=== PATIENT | female | born 1985 | race Caucasian/White ===

== ENCOUNTER 2022-11-06 01:02 | Day surgery (SDC) | payer OTHER, SELFPAY ==
[2022-11-04 11:07] VITALS: BMI 25.1
--- NOTE | 2022-11-04 11:11 | PC.NURSE ---
Report to the Outpatient Waiting Room, entrance under the green pavilion located off [facility], at time 1030 on date 11/06/22. Planned Procedure Time: 1230. Time changes happen often and if your time is changed the preop area will call you the afternoon before. - You and your visitor will be asked to self-screen and do not enter if you have any COVID symptoms. - A mask is optional within the hospital at this time. Patients may have clear liquids (water, carbonated beverages, clear teas, apple juice) until 3 hours prior to surgery with a maximum of 20 ounces. - No food from midnight until time of surgery Take the following medications with a SIP of water the morning of surgery: NONE DO NOT STOP ANY OF YOUR OTHER PRESCRIPTION MEDICATIONS PRIOR TO SURGERY EXCEPT THE FOLLOWING Medications to discontinue per physician: VITAMINS/SUPPLEMENTS Date to take last dose: NO MORE UNTIL AFTER SURGERY FOLLOW INSTRUCTIONS FROM DR. ELI MONTEIRO REGARDING ASPIRIN Please no make-up, nail belarusian, hairspray, perfume, deodorant, or body powder the day of surgery. No jewelry (including any body piercings) or valuables the day of surgery, leave them at home. Please take a shower or bath the night before, or the morning of, surgery with an antibacterial soap. Wear comfortable, loose fitting clothing. - Jewelry must be removed prior to entering the operating room. Rings and piercings that are not removed may be cut off. - The hospital will not accept responsibility for valuables. - Please leave all valuables, including medications, at home the day of surgery. If you are going home after surgery, a licensed special client bus driver must drive you home. - NO public transportation without another adult if you receive anesthesia. - We recommend that an adult stay with you for 24 hours following discharge. - We also recommend that you do not drive, make important decision, drink alcoholic beverages, or take any drugs that were not prescribed by your health care provider for at least 24 hours after your discharge time. Follow any additional instructions given to you from your surgeon. If you or anyone in your household have experienced Covid symptoms in the past week, please notify your surgeon or the nurse liaison at the phone number below for possible testing. Telephone instructions given to PT - MAIKEL CARMONA and asked if any additional questions and then verbalized understanding. Patient advised to call surgeon office or pre surgery nurse liaison [phone] if any additional questions.
--- NOTE | 2022-11-04 16:28 | PM.IMHP ---
H&P: HPI History of Present Illness Date/Time: 11/04/22 16:28 Chief Complaint: 1st trimester missed A/B Narrative: This is a very kind 37-year-old 2 para 0 in her 1st trimester of following IVF who was noted to have a 9 and half week demise intrauterine . Unfortunately she has had a previous 20 week loss many years ago and this was IVF and things were appeared to be going fine prior to this. She was offered watchful waiting versus considering dilatation curettage and opted for the latter risks and benefits reviewed including but not exclusive of , aspiration pneumonia, bleeding, transfusion, perforation injury to bowel, bladder, ureters, or other internal organs with need for open laparotomy. She all questions answered and asked to proceed PMFSH Social History Social History Smoking packs per day: 0.5 Smoking cigarettes per day: 10.0 Years smoked: 12 Smoking pack-years: 6.00 Smoking status: Former smoker Tobacco type: cigarettes Smoking end date: 05/10/17 Alcohol intake: never Substance use: never Substance use type: does not use Living arrangements: with family Spiritual care concerns: No Meds Home Medications and Allergies Home Medications Medication Instructions Recorded Confirmed Type aspirin 81 mg chewable tablet 81 mg PO DAILY 11/04/22 11/04/22 History estradiol 2 mg tablet 2 mg PO TID 11/04/22 11/04/22 History multivitamin 1 tablet PO DAILY 11/04/22 11/04/22 History progesterone 50 mg/mL 100 mg IM DAILY 11/04/22 11/04/22 History intramuscular oil Allergies Allergy/AdvReac Type Severity Reaction Status Date / Time No Known Allergies Allergy Verified 11/04/22 11:05 Exam Const: General: cooperative, healthy appearing, comfortable and average body habitus Orientation/consciousness: oriented to person, oriented to place and oriented to time HENMT: Head: normal to inspection Resp: Effort & Inspection: normal respiratory effort Cardio: Rate: regular rate Rhythm: regular rhythm Heart sounds: S1 normal heart sound present and S2 normal heart sound present GI: Inspection: normal to inspection : External Female Exam: normal external appearance Speculum Exam - Vagina: normal appearance of the vagina Speculum Exam - Cervix: normal appearance of the cervix Bimanual exam- vagina & uterus: enlarged Bimanual Exam- Adnexa, other: normal adnexae Assessment and Plan Assessment and plan (1) Missed with demise before 20 completed weeks of gestation: Code(s): O02.1 - Missed Status: Acute Plan Suction dilatation curettage
[2022-11-06] VITALS (9 sets, daily range): BP systolic 105–120; BP diastolic 54–79; PULSE 49–90; RESP 14–16; TEMP 36.3; O2SAT 99–100
--- NOTE | ~2022-11-06 | US_ITS ---
EXAMINATION: US OB <= 14 weeks fetus DATE: 11/06/2022 11:23 INDICATION: Suspicion for failure TECHNIQUE: Real-time pelvic transabdominal ultrasound was performed. COMPARISON: None. FINDINGS: There is an intrauterine gestational sac with a pole. No cardiac activity is id entified. The crown rump length measures 18 mm. The partially visualized adnexa is unremarkable . There is no free fluid in the pelvis. IMPRESSION: 1. Ultrasound findings diagnostic of failure. Reviewed, dictated and finalized at location B.
--- NOTE | 2022-11-06 07:27 | WPDHPUPDATE1 ---
History and Physical Update Update Date/Time: 11/06/22 07:27 History and Physical has been reviewed, including an updated exam of the patient. There are NO changes in the patient's condition. Risks, benefits, and alternatives have been discussed and questions answered. Patient agrees to proceed with procedure.
--- NOTE | 2022-11-06 11:22 | SUR.PREOP ---
1040 PT AND STATE CONCERNS ABOUT POSSIBLY REPEATING U.S., ASKING ABOUT GENETIC TESTING. WILL SEND MD IN TO SEE PT. 1115 U.S. DONE, DR. ELI MONTEIRO AWARE.
[2022-11-06] MEDS: LACTATED RINGERS 1,000 ML 30 ML IV CONT ×2 (11:58→13:54)
[2022-11-06] MEDS: ACETAMINOPHEN 500 MG TABLET 1000 MG PO (12:00)
--- NOTE | 2022-11-06 12:01 | WPDANESEPPF ---
Anes - Initial Pre Proc Eval Procedure: Operation Date: 11/06/22 12:30 Proposed Procedures p Suction Dilation and Curettage - Doyle Collins MD Date/Time: 11/06/22 12:01 Surgeon: Doyle Collins MD Pre Op Diagnosis: missed AB Patient Data Age: 37 Gender: F Height: 1.75 m Weight: 74.8 kg Last Vital Signs Temp 36.3 C L 11/06/22 10:39 Pulse 73 11/06/22 10:39 Resp 16 11/06/22 10:39 BP 114/79 11/06/22 10:39 Pulse Ox 100 11/06/22 10:39 O2 Del Method Room Air 11/06/22 10:39 Allergies Allergy/AdvReac Type Severity Reaction Status Date / Time No Known Allergies Allergy Verified 11/06/22 10:57 Home Medications Medication Instructions Recorded Confirmed Type aspirin 81 mg chewable tablet 81 mg PO DAILY 11/04/22 11/06/22 History estradiol 2 mg tablet 2 mg PO TID 11/04/22 11/06/22 History multivitamin 1 tablet PO DAILY 11/04/22 11/06/22 History progesterone 50 mg/mL 100 mg IM DAILY 11/04/22 11/06/22 History intramuscular oil hydrocodone 5 mg-acetaminophen 325 1 tablet PO Q4H PRN pain #20 tabs 11/06/22 Rx mg tablet Patient hx anesthesia problems: none Family hx anesthesia problems: none Results Review: All pre-operative results and documents have been reviewed as part of the pre-operative evaluation. [facility] Social History Social History Smoking packs per day: 0.5 Smoking cigarettes per day: 10.0 Years smoked: 12 Smoking pack-years: 6.00 Smoking status: Former smoker Tobacco type: cigarettes Smoking end date: 05/10/17 Alcohol intake: never Substance use: never Substance use type: does not use Living arrangements: with family Spiritual care concerns: No Anes - Eval Final PreProcedure Day of Procedure 11/06/22 12:01 Patient weight: normal Heart: regular rate and rhythm Lungs: clear to auscultation Airway: Mallampati scale class 1 Neurological: alert and oriented Last oral intake: >/= 8 hours ASA classification: II Emergent: no Anesthetic plan: proceed Anesthesia type and monitoring: general GIVS and standard monitoring Results Review: All pre-operative results and documents have been reviewed as part of the pre-operative evaluation. Informed Consent: The patient's anesthetic plan and its attendant risks and benefits were discussed with the patient/family/POA. Questions were solicited and answers provided to the satisfaction of the patient/family/POA.
[2022-11-06 12:07] LABS: Hematocrit 40.4 % (37.0-47.0); Hemoglobin 13.7 g/dL (12.0-15.0)
[2022-11-06] MEDS: LIDOCAINE HCL 1% LOCAL INJ 20 ML VIAL 10 ML INFILTRATE (12:57)
--- NOTE | 2022-11-06 13:00 | W.PM.PROC2 ---
Procedure Note - Detailed Date of Procedure 11/06/22 Pre-op Diagnosis missed AB Post-op Diagnosis Same Procedure Performed Suction dilatation curettage Surgeon Doyle Collins MD Anesthesia MAC and Local Indications this is a 37-year-old female with first-trimester missed A/B Findings uterus retroverted and sounded to 10cm. Tissue consistent with products conception Description of Procedure patient was prepped draped in normal sterile fashion placed in dorsal lithotomy position. Under excellent IV sedation weighted speculum placed post worse Mia. Anterior lip of cervix grasped single-tooth tenaculum. 2.5cc 1% xylocaine anesthesia placed at 2, 4, 8, 10:00 a.m. of the cervix. Uterus is noted be retroverted and sounded to 10cm. Serial dilatation fragmented dilators performed followed by passes the 10. Suction curette. Moderate to large amount of tissue was removed. When a good grating sound was heard the instruments withdrawn and the patient awakened. She went to recovery in satisfactory condition. All sponge, needle, instrument counts correct. There were no immediate complications Estimated Blood Loss 50 Drains No Packing No Pathology Yes ( the specimen was sent fresh) Complications No immediate complications Condition Stable Disposition PACU
[2022-11-06] MEDS: fentaNYL CITRATE INJ (*CRX) 100 MCG/2 ML VIAL 25 MCG IV PUSH ×3 (13:51→13:57)
[2022-11-06] MEDS: oxyCODONE HCL (*CRX) 5 MG TAB IR PO (14:03)
== END 2022-11-06 14:57 | disposition home or self-care (01) ==
PROVIDERS: Visit Provider Obstetrics & Gynecology
PROC: (CPT 59820; principal; 2022-11-06 12:30)
DX: O02.1 Missed abortion (principal); Z87.891 Personal history of nicotine dependence; Z3A.00 Weeks of gestation of pregnancy not specified
CPT/HCPCS: 59820; 36415; 76801; 85014; 85018; 85461; 86850; 86900; 86901; 88264; 88305; A9270; J1100; J2250; J2405; J2704; J3010; J7120

== ENCOUNTER 2022-11-10 15:01 | Observation (INO) | payer OTHER, SELFPAY ==
[2022-11-10] VITALS (17 sets, daily range): BP systolic 103–135; BP diastolic 50–90; PULSE 53–74; RESP 11–21; TEMP 36.4–37.2; O2SAT 100; BMI 25.1
--- NOTE | ~2022-11-10 | CT_ITS ---
CT of the Abdomen and Pelvis: Indication: Abdominal Technique: 2.5 mm axial scans were obtained through the abdomen and pelvis following intravenous adm inistration of 100 cc of Omnipaque 350. Dose reduction technique was used on this scan by utilizing a utomated exposure control and iterative reconstruction technique. The dose-length product (DLP) was 4 80.09 mGy-cm. Findings: Scans through the lung bases are unremarkable. The liver, spleen, pancreas, gallbladder, adrenals and kidneys are within normal limits. No evidence of aortic aneurysm. No lymphadenopathy. No bowel obstruction or bowel wall thickening. There is no evidence to suggest acute appendicitis. Images through the pelvis were performed. Urinary bladder unremarkable. There is a 2.2 cm mass near t he lower uterine segment, or possibly within the endometrial cavity. Small amount of pelvic ascites p resent. Impression: 2.2 cm mass at the lower uterine segment or possibly within the endometrial cavity. Statistically, th is is most likely a fibroid. Correlate for other endometrial polyp/mass. Small amount of pelvic ascites, nonspecific. Reviewed, dictated and finalized at location . Impression: 2.2 cm mass at the lower uterine segment or possibly within the endometrial cav ity. Statistically, this is most likely a fibroid. Correlate for other endometr ial polyp/mass. Small amount of pelvic ascites, nonspecific.
--- NOTE | ~2022-11-10 | US_ITS ---
EXAMINATION: US pelvic complete DATE: 11/11/2022 11:33 INDICATION: Retained products of conception. TECHNIQUE: Multiple transabdominal sonographic images of the pelvis were obtained. COMPARISON: CT abdomen and pelvis 11/10/2022, ultrasound 11/06/2022 FINDINGS: The uterus measures 8.9 x 5.6 x 6.4 cm. There is physiologic free fluid in the pelvis. The endometria l complex measures 23 mm in thickness. The ovaries are not visualized. IMPRESSION: 1. Thickened endometrial complex suspicious for retained products of conception. Reviewed, dictated and finalized at location A. IMPRESSION: 1. Thickened endometrial complex suspicious for retained products of conception .
[2022-11-10 15:41] LABS: Basophils Percent Auto 0.3 % (0.2-1.2); Eosinophils Absolute Auto 0.3 K/mm3 (0-0.3); Eosinophils Percent Auto 3.1 % (0-4.4); Hemoglobin 13.1 g/dL (12.0-15.0); Immature Granulocyte Absolute 0.04 K/mm3 (0.00-0.031); Immature Granulocyte Percent A 0.4 % (0-0.5); Lymphocytes Absolute Auto 2.17 K/mm3 (0.9-3.2); Lymphocytes Percent Auto 19.9 % (18.3-44.2); Mean Corpuscular HGB Conc 33.6 g/dl (32-36); Mean Corpuscular Hemoglobin 30.5 pg (26-34); Mean Corpuscular Volume 90.9 fl (80-100); Mean Platelet Volume 10.3 fl (7.4-10.4); Monocytes Percent Auto 9.2 % (2.6-8.5); Neutrophils Absolute Auto 7.3 K/mm3 (1.3-6.7); Neutrophils Percent Auto 67.1 % (45.5-73.1); Platelet Count Result 259 k/mm3 (150-375); Red Blood Count 4.29 M/mm3 (4.2-5.4); Red Cell Distribution Width 12.9 % (11.5-14.5); White Blood Count 10.9 K/mm3 (4.5-10.0)
[2022-11-10 15:51] LABS: Alanine Aminotransferase 24 U/L (6-35); Alkaline Phosphatase 67 U/L (38-126); Anion Gap 5 mmol/L (8-16); Aspartate Amino Transferase 18 U/L (14-36); Bilirubin,Total 0.5 mg/dL (0.2-1.3); Blood Urea Nitrogen 10 mg/dL (7-17); Carbon Dioxide 29 mmol/L (22-30); Chloride 105 mmol/L (98-107); Estimated CRCL calculation 115 ml/min; Estimated Glomerular Filt Rate > 60; Glucose 97 mg/dL (65-110); Potassium 3.4 mmol/L (3.4-5.0); Sodium 139 mmol/L (137-145)
[2022-11-10 16:28] LABS: Lipase 57 U/L (23-300)
[2022-11-10] MEDS: SODIUM CHLORIDE 0.9% IV 1,000 ML 999 ML IV CONT (16:31)
[2022-11-10] MEDS: MORPHINE SULFATE (*CRX) 4 MG/ML INJ IV PUSH (16:32)
[2022-11-10] MEDS: ONDANSETRON INJ 4 MG/2 ML VIAL IV PUSH ×2 (16:32→20:40)
[2022-11-10 16:45] LABS: Appearance Urine Clear (Clear); Bilirubin Urine Negative (Negative); Blood Urine 2+ (Negative); Color Urine Yellow (Yellow); Glucose Urine UA Negative (Negative); Ketones Urine Negative (Negative); Leukocyte Esterase Ur Negative LEU/UL (Negative); Nitrate Urine Negative (Negative); Protein Urine Negative (Negative); Specific Grav Ur 1.025 (1.001-1.035); Urobilinogen Urine 0.2 mg/dL (<2.0)
[2022-11-10 17:02] LABS: Add Urine Microscopic? YES
[2022-11-10 17:03] LABS: Squamous Epithelial Cell Urine Few /hpf (Few); WBC Urine 0-3 /hpf (0-3)
[2022-11-10 17:04] LABS: Bacteria Urine None Seen /hpf; Hyaline Casts Urine 0-2 /lpf
--- NOTE | 2022-11-10 17:04 | ED.GENADULT ---
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 Patient is currently going through IVF therapy. She reports she underwent D&C by Dr. Cedric Collins on Wednesday for a miscarriage/ demise at 9.5 weeks. She reports she has been having diffuse abdominal pain since then, however the pain has become worse over the last couple of days. She reports pain is occasionally epigastric, in her right upper abdomen, or diffusely throughout her lower abdomen/pelvic region. She was prescribed [place], but has been using this sparingly as she has been constipated. She reports her last true bowel movement was prior to surgery. She did pass a small amount of stool this morning, but did not feel relief. Denies rectal bleeding or melena. She is still having some light vaginal bleeding, but states she is not saturating through pads. Patient denies any nausea, vomiting, fevers, dysuria, hematuria. <DELORES Figueroa Last Filed: 11/10/22 18:39> Related Data Home medications: Home Medications Medication Instructions Recorded Confirmed aspirin 81 mg chewable tablet 81 mg PO DAILY 11/04/22 11/06/22 estradiol 2 mg tablet 2 mg PO TID 11/04/22 11/06/22 multivitamin 1 tablet PO DAILY 11/04/22 11/06/22 progesterone 50 mg/mL 100 mg IM DAILY 11/04/22 11/06/22 intramuscular oil <Vanessa Kendrick PA-C - Last Filed: 11/10/22 18:39> Allergies/adverse reactions: Allergies Allergy/AdvReac Type Severity Reaction Status Date / Time No Known Allergies Allergy Verified 11/06/22 10:57 <Vanessa Kendrick PA-C - Last Filed: 11/10/22 18:39> Review of Systems Review of Systems: CONSTITUTIONAL: Denies fever, chills, or sweats. CARDIOVASCULAR: Denies chest pain. RESPIRATORY: Denies dyspnea. GASTROINTESTINAL: See HPI. GENITOURINARY: See HPI. SKIN: Denies rash or itching. <Vanessa Kendrick PA-C - Last Filed: 11/10/22 18:39> All systems reviewed & are unremarkable except as noted in HPI and below <Vanessa Kendrick PA-C - Last Filed: 11/10/22 18:39> PMFSH Surgical History Surgical History: Surgical History (Updated 11/10/22 @ 18:13 by Vanessa Kendrick PA-C) H/O dilation and curettage <Vanessa Kendrick PA-C - Last Filed: 11/10/22 18:39> Social History Social History: Social History Smoking packs per day: 0.5 Smoking cigarettes per day: 10.0 Years smoked: 12 Smoking pack-years: 6.00 Smoking status: Former smoker Tobacco type: cigarettes Smoking end date: 05/10/17 Alcohol intake: never Substance use: never Substance use type: does not use Living arrangements: with family Spiritual care concerns: No <Vanessa Kendrick PA-C - Last Filed: 11/10/22 18:39> Exam Narrative: GENERAL: Uncomfortable appearing, well-nourished, non-toxic, in mild acute distress d/t pain. HEAD: Normocephalic, atraumatic. NECK: Supple. No adenopathy, no masses. RESPIRATORY: Airway patent, respirations nonlabored. Clear to auscultation bilaterally, no rales, rhonchi, wheezing. CARDIOVASCULAR: Regular rate and rhythm without murmurs, rubs, or gallops. Radial pulses 2+ and equal bilaterally. ABDOMINAL: Soft, diffuse tenderness throughout upper abdomen, left lower abdomen, nondisten
--- NOTE | 2022-11-10 17:07 | PC.NURSE ---
called lab @2152 to add on Beta HCG Quant. Spoke to Carissa
[2022-11-10] MEDS: HYDROmorphone HCL INJ (*CRX) 1 MG/ML SYR IV PUSH (17:52)
[2022-11-10] MEDS: HYDROmorphone HCL INJ (*CRX) 1 MG/ML SYR 0.5 MG IV PUSH (20:39)
--- NOTE | 2022-11-10 21:56 | ADMGEN ---
This patient, Ria Ritter, was admitted to 2 Medical Room 251-. Patient/family oriented to hospital policies and general routines including ID bracelet, bed and alarms, visiting hours, pain management, procedures, bathroom and other care routines, personal items, smoking policy, room service/diet, and visiting hours. Information on how to activate the Rapid Response Team has been discussed. Patient/Family are encouraged to report perceived risks to care and to ask questions if they do not understand what they are told or what they should do.
[2022-11-11] MEDS: HYDROmorphone HCL INJ (*CRX) 1 MG/ML SYR 0.5 MG IV PUSH ×3 (00:32→08:38)
[2022-11-11] MEDS: LACTATED RINGERS 1,000 ML 150 ML IV CONT ×2 (00:35→08:38)
[2022-11-11 06:44] VITALS: BP 102/67; PULSE 69; RESP 21; TEMP 36.6; O2SAT 100
--- NOTE | 2022-11-11 07:04 | PM.IMHP ---
H&P: HPI History of Present Illness Date/Time: 11/11/22 07:04 Chief Complaint: Lower abdominal pain Narrative: Since 37-year-old who underwent suction D and C for first-trimester missed A/B Wednesday was admitted last night complaining lower abdominal pain. CT was essentially negative with a small 2cm suspected fibroid in the uterus. Her white count was 10 and her hemoglobin and crit were stable. She had been doing well prior she does states she had some constipation. [facility] Surgical History Surgical History H/O dilation and curettage Social History Social History Smoking packs per day: 0.5 Smoking cigarettes per day: 10.0 Years smoked: 12 Smoking pack-years: 6.00 Smoking status: Never smoker Tobacco type: cigarettes Smoking end date: 05/10/17 Alcohol intake: current Substance use: never Substance use type: does not use Lack of Transportation: No Lack of Food: Never True Current Housing: I Have Housing Concerned About Future Housing: No Difficulty Paying Gas/Electric Bills: No Difficulty Paying for Meds: No Currently Unemployed: No Education: Bachelor's Degree Difficulty w/ Childcare or Family Care: No Living arrangements: with family Spiritual care concerns: No Meds Home Medications and Allergies Home Medications Medication Instructions Recorded Confirmed Type No Home Medications 11/10/22 11/10/22 History Allergies Allergy/AdvReac Type Severity Reaction Status Date / Time No Known Allergies Allergy Verified 11/06/22 10:57 Vital Signs Vital Signs - 24 hr 11/10/22 15:05 11/10/22 15:24 11/10/22 15:26 Temperature 98.9 F Pulse Rate 60 55 L 56 L Respiratory Rate 18 15 Blood Pressure 135/90 111/70 118/64 Pulse Oximetry 100 100 Oxygen Delivery Room Air 11/10/22 15:27 11/10/22 15:28 11/10/22 17:53 Temperature Pulse Rate 56 L 74 68 Respiratory Rate 18 Blood Pressure 116/61 108/76 119/71 Pulse Oximetry 100 Oxygen Delivery 11/10/22 15:46 11/10/22 16:01 11/10/22 16:16 Temperature Pulse Rate 60 69 57 L Respiratory Rate 11 L 11 L 16 Blood Pressure 103/62 108/66 126/75 Pulse Oximetry 100 100 100 Oxygen Delivery 11/10/22 16:35 11/10/22 16:46 11/10/22 17:01 Temperature Pulse Rate 67 56 L 59 L Respiratory Rate 13 12 14 Blood Pressure 119/73 108/74 107/67 Pulse Oximetry 100 100 100 Oxygen Delivery 11/10/22 17:16 11/10/22 17:31 11/10/22 18:01 Temperature Pulse Rate 59 L 53 L 72 Respiratory Rate 14 11 L 18 Blood Pressure 118/67 119/71 114/76 Pulse Oximetry 100 100 100 Oxygen Delivery 11/10/22 19:35 11/10/22 22:54 11/11/22 06:44 Temperature 97.6 F 97.8 F Pulse Rate 71 71 69 Respiratory Rate 13 21 H 21 H Blood Pressure 107/66 113/50 L 102/67 Pulse Oximetry 100 100 100 Oxygen Delivery Exam Const: General: cooperative, healthy appearing and average body habitus Orientation/consciousness: oriented to person, oriented to place and oriented to time HENMT: Head: normal to inspection Resp: Effort & Inspection: normal respiratory effort Cardio: Rate: regular rate Rhythm: regular rhythm Heart sounds: S1 normal heart sound present and S2 normal heart sound present GI: Inspection: normal to inspection and other (Mildly tender) Auscultation: normal bowel sounds H&P: Results Labs Labs: Short CBC 11/10/22 Range/Units 15:24 WBC 10.9 H (4.5-10.0) K/mm3 Hgb 13.1 (12.0-15.0) g/dL Hct 39.0 (37.0-47.0) % Plt Count 259 (150-375) k/mm3 BMP 11/10/22 15:24 Sodium 139 Potassium 3.4 Chloride 105 Carbon Dioxide 29 BUN 10 Creatinine 0.60 L Glucose 97 Calcium 9.0 Liver Function 11/10/22 Range/Units 15:24 Total Bilirubin 0.5 (0.2-1.3) mg/dL AST 18 (14-36) U/L ALT 24 (6-35) U/L Alkaline Phosphatase 67 (38-126) U/L Albumi
[2022-11-11 07:24] LABS: Hematocrit 34.1 % (37.0-47.0); Hemoglobin 11.2 g/dL (12.0-15.0); Mean Corpuscular HGB Conc 32.8 g/dl (32-36); Mean Corpuscular Hemoglobin 30.4 pg (26-34); Mean Corpuscular Volume 92.4 fl (80-100); Platelet Count Result 199 k/mm3 (150-375); Red Blood Count 3.69 M/mm3 (4.2-5.4); White Blood Count 6.3 K/mm3 (4.5-10.0)
[2022-11-11 08:00] VITALS: PULSE 69; RESP 21; O2SAT 100
[2022-11-11] MEDS: ACETAMINOPHEN 500 MG TABLET 1000 MG PO ×2 (10:52→14:15)
[2022-11-11 13:52] VITALS: BP 106/60; PULSE 65; RESP 18; TEMP 36.9; O2SAT 100
--- NOTE | 2022-11-12 13:33 | PM.DS ---
DS: Admitting Diagnosis Discharge Date 11/11/22 Admitting Diagnosis pelvic pain DS: Discharge Diagnosis Discharge Diagnosis (1) Pelvic pain: Code(s): R10.2 - Pelvic and perineal pain Status: Acute DS: Summary Hospital Course Reason for hospitalization: patient was admitted several days postop from suction D& C. She has had relatively Alexey abdominal pain. She was having no bleeding other abnormalities. She underwent CT and ultrasound which showed some thickened endometrium the. She was admitted and passed 1 small clot. Her white count remains stable she did receive 1 dose of Rocephin. Her hemoglobin and a crit were stable as well. A she was not bleeding and her pain was improving she was sent home without reservation. She has follow-up in 1 week Hospital Course: see above Time Spent with Patient Time attestation: Total time spent providing and/or coordinating discharge services: Exam Const: General: cooperative, healthy appearing and comfortable Nutritional Appearance: average body habitus Orientation/consciousness: oriented to person, oriented to place and oriented to time Limitations: no limitations Resp: Effort & Inspection: normal respiratory effort GI: Inspection: normal to inspection Discharge Plan Discharge Attending physician on discharge: Doyle Schneider Consulting providers: Vanessa Kendrick; Jameson Henry; Jovani Chacon V. Discharging Clinician: Doyle Schneider Patient Disposition: Home, Self-Care Activity: may shower and as tolerated Diet: regular Discharge Instructions: Monitor for bleeding. If you notice heavy bleeding or pass several large clots, please contact the office. You may take your pain medication as prescribed. Patient Instructions: Antibiotic Form Stand Alone Forms: General Discharge Information Follow-up/Referrals: Doyle Schneider MD [Physician] - Call for Appointment Discharge Medications: No Action No Home Medications Date of admission: 11/10/22 20:43 Primary Care Provider: PHYSICIAN NOT ON STAFF,NONSTAFF Admitting Provider: Doyle Schneider Attending physician on admission: Doyle Schneider Condition: Guarded Prognosis
== END 2022-11-11 15:40 | disposition home or self-care (01) ==
LOC: ANHED 21:13 → ANH2MED 11-11 08:01
PROVIDERS: Physician Assistant; Admitting Provider Obstetrics & Gynecology; Emergency Provider Emergency Medicine; Visit Provider Obstetrics & Gynecology
DX: R10.2 Pelvic and perineal pain (principal); K59.00 Constipation, unspecified; R93.89 Abnormal findings on diagnostic imaging of other specified body structures; R31.9 Hematuria, unspecified; N85.9 Noninflammatory disorder of uterus, unspecified; R18.8 Other ascites; Z87.891 Personal history of nicotine dependence; Z98.890 Other specified postprocedural states; F10.90 Alcohol use, unspecified, uncomplicated
CPT/HCPCS: 36415; 74177; 76856; 80053; 81001; 81025; 83690; 84702; 85025; 85027; 96361; 96374; 96375; 96376; 99285; A9270; G0378; J0696; J1170; J2270; J2405; J7030; J7120; Q9967

== ENCOUNTER 2023-11-18 11:04 | Inpatient (IN) | payer OTHER, SELFPAY ==
[2023-11-18] VITALS (87 sets, daily range): BP systolic 85–130; BP diastolic 40–86; PULSE 47–92; TEMP 36.8–37.2; O2SAT 98–100; BMI 30.8
--- NOTE | 2023-11-18 11:44 | PM.IMHP ---
H&P: HPI History of Present Illness Date/Time: 11/18/23 11:44 Chief Complaint: Of labor at term Narrative: [id number] 38-year-old 4 para 0 39 and half weeks gestation she has had this was an IVF she has had mildly elevated blood pressures she is for induction. She is negative for group B strep PMFSH Surgical History Surgical History H/O dilation and curettage Family History Family History Mother Cerebrovascular accident Acute myocardial infarction Grandparent Diabetes mellitus Grandparent Diabetes mellitus Grandparent Cerebrovascular accident Hypertension Social History Social History Smoking packs per day: 0.5 Smoking cigarettes per day: 10.0 Years smoked: 12 Smoking pack-years: 6.00 Smoking status: Never smoker Tobacco type: cigarettes Smoking end date: 05/10/17 Alcohol intake: current Substance use: never Substance use type: does not use Lack of Transportation: No Lack of Food: Never True Current Housing: I Have Housing Concerned About Future Housing: No Difficulty Paying Gas/Electric Bills: No Difficulty Paying for Meds: No Currently Unemployed: No Education: Bachelor's Degree Difficulty w/ Childcare or Family Care: No Living arrangements: with family Spiritual care concerns: No Meds Home Medications and Allergies Home Medications Medication Instructions Recorded Confirmed Type aspirin 81 mg tablet 81 mg PO DAILY 10/27/23 10/27/23 History cetirizine 10 mg tablet (Zyrtec) 10 mg PO DAILY 10/27/23 10/27/23 History docusate sodium 100 mg capsule 100 mg PO DAILY 10/27/23 10/27/23 History (Colace) famotidine 40 mg tablet (Pepcid) 40 mg PO DAILY 10/27/23 10/27/23 History folic acid 400 mcg tablet 0.4 mg PO DAILY 10/27/23 10/27/23 History vits no.126-ferrous fum 1 tablet PO DAILY 10/27/23 10/27/23 History 28 mg iron-folic acid 800 mcg tablet (Classic ) Allergies Allergy/AdvReac Type Severity Reaction Status Date / Time No Known Allergies Allergy Verified 10/27/23 12:31 Vital Signs Vital Signs - 24 hr 11/18/23 11:31 11/18/23 11:36 11/18/23 11:42 Pulse Rate 54 L Blood Pressure 118/74 Pulse Oximetry 99 98 98 11/18/23 11:43 Pulse Rate Blood Pressure Pulse Oximetry 98 Exam Const: General: cooperative, healthy appearing and comfortable Nutritional Appearance: average body habitus Orientation/consciousness: oriented to person, oriented to place and oriented to time HENMT: Head: normal to inspection Resp: Effort & Inspection: normal respiratory effort Cardio: Rate: regular rate Rhythm: regular rhythm Heart sounds: S1 normal heart sound present and S2 normal heart sound present GI: Inspection: normal to inspection ( gravid the uterus) : Speculum Exam - Vagina: normal appearance of the vagina Speculum Exam - Cervix: normal appearance of the cervix ( cervix 2/50%) Assessment and Plan Assessment and plan (1) Term : Code(s): Z34.90 - Encounter for supervision of normal , unspecified, unspecified trimester Status: Acute Assessment and Plan: labor. Spontaneous vaginal expected. She is in the epidural candidate
[2023-11-18 11:47] LABS: Basophils Percent Auto 0.3 % (0.2-1.2); Eosinophils Absolute Auto 0.1 K/mm3 (0-0.3); Eosinophils Percent Auto 0.5 % (0-4.4); Hematocrit 37.9 % (37.0-47.0); Immature Granulocyte Absolute 0.05 K/mm3 (0.00-0.031); Immature Granulocyte Percent A 0.5 % (0-0.5); Lymphocytes Absolute Auto 1.77 K/mm3 (0.9-3.2); Lymphocytes Percent Auto 19.1 % (18.3-44.2); Mean Corpuscular HGB Conc 34.3 g/dl (32-36); Mean Corpuscular Hemoglobin 31.3 pg (26-34); Mean Corpuscular Volume 91.3 fl (80-100); Mean Platelet Volume 12.4 fl (7.4-10.4); Monocytes Percent Auto 10.5 % (2.6-8.5); Neutrophils Absolute Auto 6.4 K/mm3 (1.3-6.7); Neutrophils Percent Auto 69.1 % (45.5-73.1); Platelet Count Result 165 k/mm3 (150-375); Red Blood Count 4.15 M/mm3 (4.2-5.4); Red Cell Distribution Width 13.2 % (11.5-14.5); White Blood Count 9.3 K/mm3 (4.5-10.0)
[2023-11-18 12:37] LABS: HIV 1/2 Ab P24 Ag Result Negative (Negative)
[2023-11-18] MEDS: OXYTOCIN 30 UNITS/NS 500 ML 30 UNITS/500 ML BAG 6 UNITS IV CONT (15:04)
[2023-11-18] MEDS: LACTATED RINGERS 1,000 ML 125 ML IV CONT (15:05)
--- NOTE | 2023-11-18 16:11 | PM.OBPNLAB ---
Pain Control Date/time seen: 11/18/23 16:11 Pain control: tolerating well Pelvic Exam station: -1 Amniotic membrane status: Intact
[2023-11-18] MEDS: DINOPROSTONE 10 MG VAG INSERT VAGINAL (17:07)
--- NOTE | 2023-11-18 17:58 | LDADM ---
This patient, Ria Ritter, was admitted to Labor/Delivery/Recovery 107 on 11/18/23 at 11:04. Plans for labor, pain management and were discussed with patient. Patient/family oriented to hospital policies and general routines including ID bracelet, bed and alarms, visiting hours, pain management, procedures, bathroom and other care routines, personal items, smoking policy, room service/diet and guest tray routines, infant security routines, and visiting hours. Patient/Family are encouraged to report perceived risks to care and to ask questions if they do not understand what they are told or what they should do. See OBIX for further documentation.
[2023-11-19] VITALS (332 sets, daily range): BP systolic 84–131; BP diastolic 38–100; PULSE 44–105; RESP 18–20; TEMP 36.3–37.7; O2SAT 96–100
[2023-11-19] MEDS: fentaNYL CITRATE INJ (*CRX) 100 MCG/2 ML VIAL 50 MCG IV PUSH (04:44)
--- NOTE | 2023-11-19 06:08 | PM.OBPNLAB ---
Pain Control Date/time seen: 11/19/23 06:08 Pain control: tolerating well Comments: still unable to tolerate exam. get epidural Pelvic Exam station: -1 Amniotic membrane status: Intact
[2023-11-19] MEDS: LACTATED RINGERS 1,000 ML 999 ML IV CONT (06:34)
--- NOTE | 2023-11-19 06:57 | WPDANESEPP ---
Anes - Eval Pre Procedure Procedure: Labor epidural Date/Time: 11/19/23 06:57 Surgeon: Cedric Collins Preop Diagnosis: Pain during labor Pre Op Diagnosis: IOL Patient Data Age: 38 Gender: F Height: 1.73 m Weight: 92 kg Last Vital Signs Temp 36.3 C L 11/19/23 05:17 Pulse 66 11/19/23 06:01 BP 117/59 L 11/19/23 06:01 Pulse Ox 100 11/19/23 06:53 O2 Del Method Room Air 11/18/23 18:17 Allergies Allergy/AdvReac Type Severity Reaction Status Date / Time No Known Allergies Allergy Verified 10/27/23 12:31 Home Medications Medication Instructions Recorded Confirmed Type aspirin 81 mg tablet 81 mg PO DAILY 10/27/23 10/27/23 History cetirizine 10 mg tablet (Zyrtec) 10 mg PO DAILY 10/27/23 10/27/23 History docusate sodium 100 mg capsule 100 mg PO DAILY 10/27/23 10/27/23 History (Colace) famotidine 40 mg tablet (Pepcid) 40 mg PO DAILY 10/27/23 10/27/23 History folic acid 400 mcg tablet 0.4 mg PO DAILY 10/27/23 10/27/23 History vits no.126-ferrous fum 1 tablet PO DAILY 10/27/23 10/27/23 History 28 mg iron-folic acid 800 mcg tablet (Classic ) Laboratory Tests 11/18/23 11:24 WBC 9.3 K/mm3 (4.5-10.0) RBC 4.15 L M/mm3 (4.2-5.4) Hgb 13.0 g/dL (12.0-15.0) Hct 37.9 % (37.0-47.0) MCV 91.3 fl (80-100) MCH 31.3 pg (26-34) MCHC 34.3 g/dl (32-36) RDW 13.2 % (11.5-14.5) Plt Count 165 k/mm3 (150-375) MPV 12.4 H fl (7.4-10.4) Immature Gran % (Auto) 0.5 % (0-0.5) Neut % (Auto) 69.1 % (45.5-73.1) Lymph % (Auto) 19.1 % (18.3-44.2) [place] % (Auto) 10.5 H % (2.6-8.5) Eos % (Auto) 0.5 % (0-4.4) Baso % (Auto) 0.3 % (0.2-1.2) Lymph # (Auto) 1.77 K/mm3 (0.9-3.2) [place] # (Auto) 1.0 H K/mm3 (0.1-0.6) Eos # (Auto) 0.1 K/mm3 (0-0.3) Baso # (Auto) 0.0 K/mm3 (0.0-0.1) Abs Immat Gran (auto) 0.05 H K/mm3 (0.00-0.031) Absolute Neuts (auto) 6.4 K/mm3 (1.3-6.7) Absolute Nucleated RBC 0.000 K/mm3 (0.0-0.012) Nucleated RBC % 0.0 % (0.0-0.2) RPR Pending HIV 1&2 Ab/P24 Ag 4thGn Negative (Negative) Blood Type O Positive Antibody Screen Negative Patient hx anesthesia problems: none Family hx anesthesia problems: none Results Review: All pre-operative results and documents have been reviewed as part of the pre-operative evaluation. [facility] Surgical History Surgical History H/O dilation and curettage Family History Family History Mother Cerebrovascular accident Acute myocardial infarction Grandparent Diabetes mellitus Grandparent Diabetes mellitus Grandparent Cerebrovascular accident Hypertension Social History Social History Smoking packs per day: 0.5 Smoking cigarettes per day: 10.0 Years smoked: 12 Smoking pack-years: 6.00 Smoking status: Never smoker Tobacco type: cigarettes Smoking end date: 05/10/17 Alcohol intake: current Substance use: never Substance use type: does not use Do You Feel Safe in your Home?: Yes Lack of Transportation: No Lack of Food: Never True Current Housing: I Have Housing Concerned About Future Housing: No Difficulty Paying Gas/Electric Bills: No Difficulty Paying for Meds: No Currently Unemployed: No Education: Associate Degree Difficulty w/ Childcare or Family Care: No Living arrangements: with family Spiritual care concerns: No Exam Day of Procedure 11/19/23 06:57 Patient weight: overweight Heart: regular rate and rhythm Lungs: clear to auscultation Airway: Mallampati scale Neurological: alert and oriented
--- NOTE | 2023-11-19 08:17 | PM.OBPNLAB ---
Pain Control Date/time seen: 11/19/23 08:17 Pain control: tolerating well and epidural Pelvic Exam Dilation (cm): 3 Effacement (%): 70 station: -1 Amniotic membrane status: Leaking
[2023-11-19] MEDS: ONDANSETRON INJ 4 MG/2 ML VIAL IV PUSH ×2 (09:02→17:27)
[2023-11-19] MEDS: FAMOTIDINE 20 MG/2 ML VIAL IV PUSH (09:03)
[2023-11-19] MEDS: LACTATED RINGERS 1,000 ML 125 ML IV CONT ×2 (10:58→15:41)
[2023-11-19 11:17] LABS: Rapid Plasma Reagin Non-Reactive (NonReactive)
[2023-11-19] MEDS: ePHEDrine sulfate INJ 50 MG/ML AMPUL IV PUSH (15:41)
[2023-11-19] MEDS: SODIUM CHLORIDE 0.9% IV 300 ML 600 ML I-UTERINE (17:25)
--- NOTE | 2023-11-19 18:20 | WPDHPUPDATE1 ---
History and Physical Update Update Date/Time: 11/19/23 18:20 History and Physical has been reviewed, including an updated exam of the patient. There are NO changes in the patient's condition. Risks, benefits, and alternatives have been discussed and questions answered. Patient agrees to proceed with procedure. needs section, risks reviewed
--- NOTE | 2023-11-19 18:28 | PM.DS ---
DS: Admitting Diagnosis Discharge Date 11/22/2023 Admitting Diagnosis Term DS: Discharge Diagnosis Discharge Diagnosis (1) Term : Code(s): Z34.90 - Encounter for supervision of normal , unspecified, unspecified trimester Status: Acute DS: Summary Hospital Course Reason for hospitalization: patient was admitted for induction labor got to 5-6 cm get no further the baby did tolerate labor. She underwent low-transverse section. Hospital Course: Patient saw spill course remarkable. She remained afebrile. She was up, voiding without difficulty without complaints. Time Spent with Patient Time attestation: Total time spent providing and/or coordinating discharge services: Exam Const: General: cooperative, healthy appearing and comfortable Nutritional Appearance: average body habitus Orientation/consciousness: oriented to person, oriented to place and oriented to time HENMT: Head: normal to inspection Resp: Effort & Inspection: normal respiratory effort Cardio: Rate: regular rate Rhythm: regular rhythm Heart sounds: S1 normal heart sound present and S2 normal heart sound present GI: Inspection: normal to inspection and incision ( Wound is clean dry and intact) DS: Data Data Completed and Pending Labs on day of discharge: Labs from last 24 hours 11/18/23 11:24 RPR Non-reactive Discharge Plan Discharge Attending physician on discharge: Doyle Schneider Consulting providers: Joy Wiley; Kris Morales Discharging Clinician: Walter Jacobsen Patient Disposition: Home, Self-Care Activity: may shower, may drive after 2 weeks and pelvic rest Diet: regular Wound Care Instructions: incision open to air Discharge Instructions: Education: Mom and Baby Guide Given to: Mother Follow-Up: Call your delivering provider's office for an appointment to be seen in: 4 Weeks Mom and baby should come to the [facility] for the follow-up appointment. Appointment Date/Time: November 23, 2023 at 8:00 am What to expect at your follow-up visit: Blood Pressure Check Call [phone] if you are unable to keep your appointment time. BREAST CARE: * Wear a snug supportive bra. * For engorgement discomfort: Breast Feeding: * Apply warm moist washcloths * Express milk as needed to relieve engorgement * Wear loose clothing Bottle Feeding: * May apply ice packs * For sore nipples: * Identify correct latch-on * Apply warm moist washcloths before and after nursing * Air dry nipples after nursing * May apply Lansinoh cream to nipples ABDOMINAL INCISION: (if applicable) * Allow incision to air dry * Do NOT use lotions for powders on your incision * When showering, allow soap and water to run over the incision, but do not wash incision EPISIOTOMY/PERINEAL CARE: * Until bleeding stops, use your jeannine bottle after urinating * Change your pad frequently throughout the day * You may take sitz baths several times a day (fill your bathtub with warm water and soak for 20 minutes.) Do NOT bathe in the water * No tub baths until seen by your physician - You may shower ACTIVITY: * Rest as much as possible. * Do not exercise or lift anything heavier than your baby (such as laundry or other children.) * Avoid stairs or driving as much as possible. * Do not put anything into the vagina. No douching, tampons, or sexual activity until seen by physician. NOTIFY PHYSICIAN IF YOU HAVE ANY QUESTIONS OR IF ANY OF THE FOLLOWING SYMPTOMS OCCUR: * If your episiotomy or incision becomes red, swollen, or more painful than what you have experienced in the hospital. * If your vaginal bleeding becomes foul smelling. * If your vaginal bleeding becomes more heavy than a period or if your bleeding changes from pink to bright red. However, you may pass
[2023-11-19] MEDS: AZITHROMYCIN 500 MG/NS 250 ML 500 MG/250 ML BAG 250 MG IVPB (18:30)
[2023-11-19] MEDS: ceFAZolin 2 GM/D5W 50 ML 2 GM/50 ML BAG IVPB (18:40)
[2023-11-19] MEDS: OXYTOCIN 30 UNITS/NS 500 ML 30 UNITS/500 ML BAG 125 UNITS IV CONT (19:00)
--- NOTE | 2023-11-19 19:19 | W.PM.OBCSD ---
OB - Delivery Note Procedure Delivery date: 11/19/23 Pre-op diagnosis: Other ( intolerance to labor) Post-op Diagnosis: Same Induction method: AROM Delivery augmentation: Pitocin Delivery monitor: External FHT and Internal Uterine Prior to decision for section, ACOG/SMFM labor guidelines were considered and discussed with the patient and staff. Decision made to proceed with the section.: Yes Procedure Performed: Primary Surgeon: Doyle Collins MD Anesthesia type: Epidural Description of Procedure/Findings: the patient was not a induced at term and underwent very slow 1st stage of labor get the fiber 6cm internal monitors placed and continued to recurrent decelerations. We never able to get quite adequate contractions the baby did not tolerate. After obtained for presents was taken the back prepped and draped in the normal sterile fashion placed in the supine position. Under excellent epidural anesthesia the abdomen was entered in Pfannenstiel fashion progressive layers of fascia. Fascia incised midline cure number not fashion bilaterally. Underlying muscles sharply dissected. Parietal peritoneum lip of L by Roxanna clamps and by sharp dissection the carried by superiorly and inferiorly to the dome of the bladder. Bladder blade placed. Bladder flap formed. Bladder blade returned. A low-transverse incision made the head delivered in the ASPEN position nuchal cord was noted to be fairly tight x2 and was relieved around the occiput. Anterior posterior shoulder delivered spontaneously. Cord clamped x2 and cut passed off the table given Apgars of 8 [id number] 9 [id number]. Cord blood was drawn. Placenta delivered intact spontaneous. Twenty-two of Pitocin placed in a benign from the uterus. After expected the internal portion of the uterus and noting free from debris and membranes. The uterus was closed with continuous running 0 Vicryl from lateral edge to lateral edge. This was followed by 2nd imbricating running locking 0 Vicryl from lateral edge to lateral edge. Hemostasis was assured. Ovaries and tubes appeared within normal limits. The uterus returned to the abdomen. Hemostasis on the hysterotomy incision was inspected once again. The laps removed and accounted for. The fascia closed with continuous running 0 Vicryl from lateral edge to lateral edge. Irrigation subcutaneous layer the skin closed with 4 Monocryl glue. QBL is 580cc. Mom and baby doing fine at the time dictation. There were no immediate complications Specimen: No Estimated Blood Loss: 580 Urine Output: 600 Drains: No Packing: No Pathology: None sent Complications: No immediate complications Condition: Stable Disposition: PACU [place] Baby Date of : 11/19/23 Time of : 18:52 Weeks of gestation at delivery: 39 gender: Male Weight (pounds): 6 Weight (ounces): 14 presentation: vertex position: Right Occiput Anterior Placenta delivery description: Manual Removal Cord Vessel Description: 3 Vessels, Nuchal Cord (x2) and Reduced score one minute: 8 score five minutes: 9
--- NOTE | 2023-11-19 22:30 | PC.NURSE ---
report to Virginia Hall RN in care. Patient transferred to room 282 with all belongings. report given no questions at this time.
[2023-11-19] MEDS: HYDROcodone/acetaminophen (*CRX) 5-325 MG TABLET 1 TAB (22:49)
[2023-11-20] MEDS: KETOROLAC 15 MG/ML VIAL (*BKC) IV PUSH ×3 (00:16→13:38)
[2023-11-20] MEDS: ONDANSETRON INJ 4 MG/2 ML VIAL IV PUSH (00:16)
[2023-11-20] MEDS: DEXTROSE 5%/0.45% SOD CHL 1,000 ML 125 ML IV CONT (00:18)
[2023-11-20] MEDS: ACETAMINOPHEN 325 MG TABLET 650 MG PO ×4 (00:20→20:13)
[2023-11-20] MEDS: LIDOCAINE 5% PATCH 1 PATCH TRANSDERM (00:21)
--- NOTE | 2023-11-20 01:38 | OBPPTRN ---
Patient transferred to post room #282 via (stretcher). Support person present. Oriented to unit, room, information board, rooming in, admission packet and security measures. Patient verbalizes understanding.
[2023-11-20] MEDS: LANOLIN (LANSINOH) 7.5 GM CREAM 1 APPLIC TOPICAL (01:40)
[2023-11-20] MEDS: ACETAMINOPHEN 500 MG TABLET 1000 MG PO (01:41)
[2023-11-20] MEDS: FAMOTIDINE 20 MG/2 ML VIAL IV PUSH (01:42)
--- NOTE | 2023-11-20 01:52 | PM.OBPNVD ---
OB - PN: Subj Subjective Date/time seen: 11/20/23 01:52 Narrative: Pain OK. Tolerating diet. Would like circumcision for son. OB - PN: Obj Data Labs 11/18/23 11:24 Labs: Laboratory Results - last 24 hr 11/18/23 11:24 RPR Non-reactive OB - PN A/P Plan day: 1 Comments: A: POD#1, doing well. P: Routine care. Reviewed circ. Exam Narrative: AVSS I/O OK ABD soft, nontender, fundus firm. Incision c/d/i. EXT nontender
[2023-11-20 04:30] VITALS: BP 96/60; PULSE 70; RESP 18; TEMP 36.8; O2SAT 97
[2023-11-20 05:43] LABS: Basophils Percent Auto 0.3 % (0.2-1.2); Eosinophils Percent Auto 0.1 % (0-4.4); Hematocrit 28.8 % (37.0-47.0); Hemoglobin 9.4 g/dL (12.0-15.0); Immature Granulocyte Absolute 0.06 K/mm3 (0.00-0.031); Immature Granulocyte Percent A 0.4 % (0-0.5); Lymphocytes Absolute Auto 1.21 K/mm3 (0.9-3.2); Mean Corpuscular HGB Conc 32.6 g/dl (32-36); Mean Corpuscular Hemoglobin 31.2 pg (26-34); Mean Corpuscular Volume 95.7 fl (80-100); Mean Platelet Volume 12.5 fl (7.4-10.4); Monocytes Absolute Auto 1.2 K/mm3 (0.1-0.6); Monocytes Percent Auto 8.1 % (2.6-8.5); Neutrophils Absolute Auto 12.5 K/mm3 (1.3-6.7); Neutrophils Percent Auto 83.1 % (45.5-73.1); Platelet Count Result 114 k/mm3 (150-375); Red Blood Count 3.01 M/mm3 (4.2-5.4); Red Cell Distribution Width 13.3 % (11.5-14.5); White Blood Count 15.1 K/mm3 (4.5-10.0)
[2023-11-20] MEDS: METOCLOPRAMIDE HCL INJ 10 MG/2 ML VIAL IV PUSH (05:53)
[2023-11-20] MEDS: SIMETHICONE 80 MG TAB.CHEW PO ×3 (07:53→17:24)
[2023-11-20 08:00] VITALS: BP 105/60; PULSE 68; RESP 18; TEMP 36.3; O2SAT 99
--- NOTE | 2023-11-20 09:00 | PC.NURSE ---
Patient has complaints of sore nipples. The left areola is bruised and the right nipple is more sore and has a blister. Discussed deep latches, maintaining the latch and rotating positions. just fed and is sleeping. Mother is very receptive of education and will call out for the next feeding for assistance and evaluation.
[2023-11-20] MEDS: DOCUSATE SODIUM 100 MG CAPSULE PO ×2 (09:42→17:23)
[2023-11-20] MEDS: MULTIVIT/MIN/PREN/FOL AC/IRON TABLET 1 TAB PO (09:42)
[2023-11-20] MEDS: POLYSACCHARIDE IRON COMPLEX 150 MG CAPSULE PO ×2 (09:42→17:24)
--- NOTE | 2023-11-20 11:15 | PC.NURSE ---
Consulted with patient to assess needs related to . Discussed with mother her successes, concerns and any questions she has. Her nipples are sore and there is a blister on the right nipple and the left areola is bruised. Reviewed signs of a deep latch, changing positions, and breaking suction to relatch if is shallw. We reviewed working with the infant, supporting breast, protecting her nipples with an optimal deep latch, good positioning. Encouraged understanding the benefits of skin to skin, responding to feeding cues, frequencies of feeding 8-12 times in 24 hours (approximately 2-3 hours), duration of feedings, milk production, intake/output feeding sheet and signs of adequate intake encouraging swallowing at the breast. Reviewed positioning and alignment, supporting breast, off-centered (asymmetrical latch) and leading with the chin with big, open, wide gape. latched optimally to the [left] breast in [cross cradle] position. Education given to the mother of how to visualize the suckling (with good rocking jaw motion) swallows (dropping of the lower jaw) and how to listen for drinking at the breast (the ka sound). The was [able] to maintain latch without discomfort to mother. Nipple care reviewed with optimal latch, good positioning and using clean hands when touching her breast. Resources used to facilitate learning were used from the [mom and baby guide]. Mother voiced understanding of the education shared, to call for assistance if the infant does not latch or if there is discomfort with . Reported to the Primary RN.
--- NOTE | 2023-11-20 13:48 | WPDANLDPN2 ---
Anes-Prog Note L&D Date/Time: 11/20/23 13:48 Comfortable throughout: labor and section Neuraxial method: epidural Epidural/Spinal procedure site: tender Neuro status: Neuro function grossly intact. Cardiovascular status: normal Respiratory status: normal Airway patency: baseline Mental status: baseline Post-Op hydration status: normal Vital Signs: Last Vital Signs Temp 36.3 C L 11/20/23 08:00 Pulse 68 11/20/23 08:00 Resp 18 11/20/23 08:00 BP 105/60 11/20/23 08:00 Pulse Ox 99 11/20/23 08:00 O2 Del Method Room Air 11/20/23 08:00 Pain score (VAS): 4/10 I/O: Intake & Output 11/19/23 11/20/23 11/20/23 23:59 07:59 15:59 Intake Total 150 250 Output Total 1275 500 300 Balance -1275 -350 -50 Post-procedural complaints: nausea and pruritis mild, no treatment Patient feedback: Patient satisfied with anesthetic care.
--- NOTE | 2023-11-20 13:49 | WPDANLDNPN2 ---
Anes-Prog Note L&D-Neuraxial Date/Time: 11/20/23 13:49 Neuraxial medications: epidural PF morphine Opiod-related complaints: nausea Patient feedback: Patient satisfied with post-operative pain management.
--- NOTE | 2023-11-20 14:40 | PC.NURSE ---
Mother demonstrates she is able to independently latch with appropriate positioning and alignment. She complains of nipple discomfort on the right nipple. Infant latches to that side in cross cradle hold with minimal assistance. The latch felt good to mom but as moved his head a lost his deep latch she felt pinching. We latched again and she was educated on compressing her breast tissue to fit a bigger bite in babies mouth and how to hold her had behind his head to prevent him from breaking the latch. We discussed waking infant if he hasn't fed for 3 hours and how to keep him awake during the feeding if he is sleepy. At this feeding he is sucking consistently with stimulation and maintaining a good latch that is comfortable for mom. Mother declines any additional assistance or education at this time. Mother is encouraged to call for assistance if her infant doesn?t latch, pain with latching, questions or concerns. Mother voiced understanding of information shared along with the mom/baby guide for an additional resource. Reported to the Primary RN.
[2023-11-20 20:30] VITALS: BP 133/77; PULSE 83; RESP 16; TEMP 36.6; O2SAT 100
[2023-11-20] MEDS: IBUPROFEN 600 MG TABLET PO (21:40)
[2023-11-21] MEDS: IBUPROFEN 600 MG TABLET PO ×4 (01:47→19:44)
[2023-11-21] MEDS: ACETAMINOPHEN 325 MG TABLET 650 MG PO ×4 (01:47→19:44)
[2023-11-21] MEDS: HYDROCORTISONE 2.5% CREAM 30 GM TUBE 1 APPLIC (05:03)
[2023-11-21 07:45] VITALS: BP 107/75; PULSE 60; RESP 16; TEMP 36.3; O2SAT 99
[2023-11-21] MEDS: SIMETHICONE 80 MG TAB.CHEW PO ×3 (07:54→16:04)
[2023-11-21] MEDS: POLYSACCHARIDE IRON COMPLEX 150 MG CAPSULE PO ×2 (07:54→16:03)
[2023-11-21] MEDS: MULTIVIT/MIN/PREN/FOL AC/IRON TABLET 1 TAB PO (07:55)
[2023-11-21] MEDS: DOCUSATE SODIUM 100 MG CAPSULE PO ×2 (07:55→16:03)
--- NOTE | 2023-11-21 10:00 | PM.OBPNVD ---
OB - PN: Subj Subjective Date/time seen: 11/21/23 10:00 Narrative: Pain OK. Tolerating diet. OB - PN: Obj Data Labs 11/20/23 05:06 OB - PN A/P Plan Comments: A: POD#2, doing well. P: Routine care. Exam Narrative: AVSS I/O OK ABD soft, nontender, fundus firm. Incision c/d/i. EXT nontender
--- NOTE | 2023-11-21 10:01 | P.DS_ITS ---
DS: Admitting Diagnosis Discharge Date 11/22/23 Admitting Diagnosis IUP at term Gestational hypertension DS: Discharge Diagnosis Discharge Diagnosis (1) (normal spontaneous vaginal delivery): Code(s): O80 - Encounter for full-term uncomplicated delivery Status: Acute (2) Gestational hypertension: Code(s): O13.9 - Gestational [-induced] hypertension without significant proteinuria, unspecified trimester Status: Acute OB - DS: Summary OB Procedures : None OB Procedures Intrapartum: OB Procedures: : None Peripartum Data Procedures: Procedures Operation Date: 11/19/23 18:20 Actual Procedure Side Surgeon p Section Bilateral Doyle Collins MD Time Spent with Patient Time attestation: Total time spent providing and/or coordinating discharge services: Discharge Plan Discharge Attending physician on discharge: Doyle Schneider Discharging Clinician: Walter Jacobsen Patient Disposition: Home, Self-Care Activity: may shower, may drive after 2 weeks and pelvic rest Diet: regular Wound Care Instructions: incision open to air Discharge Instructions: Call or return if temperature above 100.4? F, increased abdominal pain, increased vaginal bleeding or any new problems. Stand Alone Forms: General Discharge Information Follow-up/Referrals: Doyle Schneider MD [Physician] - 4 Weeks Discharge Medications: New hydrocodone-acetaminophen 5-325 mg tablet 1 tablet PO Q4H PRN (Reason: pain) Qty: 30 0RF ibuprofen 600 mg tablet 600 mg PO Q6H PRN (Reason: cramps) Qty: 30 0RF ferrous sulfate 325 mg (65 mg iron) tablet 325 mg PO DAILY Qty: 30 0RF hydrocodone-acetaminophen 5-325 mg tablet 1 - 2 tablet PO Q6H PRN (Reason: pain) Qty: 20 0RF Continued cetirizine [Zyrtec] 10 mg Tablet 10 mg PO DAILY famotidine [Pepcid] 40 mg Tablet 40 mg PO DAILY folic acid 400 mcg Tablet 0.4 mg PO DAILY docusate sodium [Colace] 100 mg Capsule 100 mg PO DAILY Classic 28 mg iron- 800 mcg Tablet 1 tablet PO DAILY Discontinued aspirin 81 mg Tablet 81 mg PO DAILY Date of admission: 11/18/23 11:04 Primary Care Provider: PHYSICIAN NOT ON STAFF,NONSTAFF Admitting Provider: Dalla [place],Doyle J. Attending physician on admission: Doyle Schneider Condition: Stable
[2023-11-21] MEDS: LIDOCAINE 5% PATCH 1 PATCH TRANSDERM (13:50)
[2023-11-21 19:45] VITALS: BP 120/73; PULSE 61; RESP 18; TEMP 36.8
[2023-11-21] MEDS: HYDROcodone/acetaminophen (*CRX) 10-325 MG TABLET 1 TAB PO (20:50)
[2023-11-22] MEDS: HYDROcodone/acetaminophen (*CRX) 10-325 MG TABLET 1 TAB PO (00:50)
[2023-11-22] MEDS: ACETAMINOPHEN 325 MG TABLET 650 MG PO ×2 (01:50→08:58)
[2023-11-22] MEDS: IBUPROFEN 600 MG TABLET PO ×2 (01:50→08:58)
[2023-11-22] MEDS: HYDROcodone/acetaminophen (*CRX) 5-325 MG TABLET 1 TAB PO (04:50)
[2023-11-22 08:00] VITALS: BP 125/70; PULSE 71; RESP 16; TEMP 37.1; O2SAT 100
[2023-11-22] MEDS: POLYSACCHARIDE IRON COMPLEX 150 MG CAPSULE PO (08:57)
[2023-11-22] MEDS: DOCUSATE SODIUM 100 MG CAPSULE PO (08:57)
[2023-11-22] MEDS: SIMETHICONE 80 MG TAB.CHEW PO (08:57)
[2023-11-22] MEDS: MULTIVIT/MIN/PREN/FOL AC/IRON TABLET 1 TAB PO (08:58)
--- NOTE | 2023-11-22 09:03 | PM.OBPNVD ---
OB - PN: Subj Subjective Date/time seen: 11/22/23 09:03 Narrative: Pain OK. Tolerating diet. Would like to go home. OB - PN: Obj Data Labs 11/20/23 05:06 OB - PN A/P Plan Comments: A: POD#3, doing well. P: Home to f/u 4 weeks. Exam Narrative: AVSS ABD soft, nontender, fundus firm. Incision c/d/i. EXT nontender
[2023-11-23 08:29] VITALS: BP 130/69; PULSE 78; RESP 18; TEMP 36.6; O2SAT 100
== END 2023-11-22 12:53 | disposition home or self-care (01) | DRG 788 ==
LOC: ANHLDR 11-19 18:30 → ANHOB2 11-22 12:22 → ANHLDR 11-23 08:49 → ANHOB2 11-23 08:49
PROVIDERS: Admitting Provider Obstetrics & Gynecology; Visit Provider Obstetrics & Gynecology
PROC: 10D00Z1 Extraction of Products of Conception, Low, Open Approach (ICD-10-PCS; CPT 59514; principal; 2023-11-19 18:20)
DX: O36.8330 Maternal care for abnormalities of the fetal heart rate or rhythm, third trimester, not applicable or unspecified (principal); O69.81X0 Labor and delivery complicated by cord around neck, without compression, not applicable or unspecified; Z37.0 Single live birth; Z3A.39 39 weeks gestation of pregnancy
CPT/HCPCS: 36415; 85025; 86592; 86703; 86850; 86900; 86901; A9270; G0432; J0456; J0690; J1885; J2175; J2274; J2405; J2590; J2765; J2795; J3010; J7030; J7120